=== PATIENT | female | born 2005 ===

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

== ENCOUNTER 2024-02-07 15:17 | Emergency (ER) | payer MEDICAID, SELFPAY ==
[2024-02-07 16:27] VITALS: BP 109/65; PULSE 125; RESP 18; TEMP 37.8; O2SAT 99; BMI 20.8
--- NOTE | 2024-02-07 16:27 | ED.GENADULT ---
HPI - General Adult General Chief complaint: Upper Respiratory Symptoms Stated complaint: fever headache Time Seen by Provider: 02/07/24 17:33 Source: patient Mode of arrival: ambulatory Limitations: no limitations History of Present Illness ED Provider: shasta LUCAS narrative: Patient is a 18-year-old female presenting to the emergency department with complaint of cough, fever, nasal congestion and headache which began today. Patient recently traveled here from [place]. She denies any known sick contacts. She denies any nausea or vomiting and has been able to tolerate food and fluids by mouth. Do not take any ahgi-sax-phrpgla medications prior to arrival. complaint: fever, cough Onset (ago): hour(s) Associated symptoms: cough, fever/chills and headaches Treatments prior to arrival: none Related Data Previous Rx's ?Medication ?Instructions ?Recorded oseltamivir 75 mg capsule 75 mg PO BID 5 days #10 caps 02/07/24 Allergies Allergy/AdvReac Type Severity Reaction Status Date / Time Penicillins Allergy Unknown Verified 02/07/24 16:30 Review of Systems Review of Systems: As per HPI. Yes all other systems are reviewed and are negative Constitutional: Constitutional: Reports as per HPI [facility] Social History Social History Advance Directives: No Advance Directives Information Provided: No Do you have a plan to hurt others: No Plan Physical Exam ED Vital Signs: Vital Signs - 24 hr 02/07/24 16:27 Temperature 100.1 F Pulse Rate 125 H Respiratory Rate 18 Blood Pressure 109/65 Pulse Oximetry 99 Oxygen Delivery Method Room Air BMI result Body Mass Index 20.8 Vital signs have been reviewed and appear to be correct. Blood pressure normal. Heart rate tachycardic. Respiratory rate normal. Temperature elevated. Oxygen saturation normal. Const General: cooperative, healthy appearing and no acute distress Orientation/consciousness: oriented to person, oriented to place, oriented to time and patient oriented x3 Limitations: no limitations HENMT Head: Yes normocephalic and Yes atraumatic Ears: external ears normal General nose exam: Normal external nose present Face and sinus: Yes face symmetric Mouth: oropharynx normal and moist mucous membranes Throat: Yes uvula midline Eyes Pupils: Equal, round and reactive pupils present Neck Neck: Yes normal visual inspection and Yes supple Resp Effort & Inspection: normal respiratory effort and able to speak in complete sentences Auscultation: clear to auscultation bilaterally Cardio Rate: tachycardic Rhythm: regular rhythm Heart sounds: S1 normal heart sound present and S2 normal heart sound present GI Palpation (GI): Soft to palpation and nontender Auscultation: normoactive bowel sounds General: Yes no CVA tenderness Back/Spine/Pelvis Back: no CVA tenderness Skin General skin exam: elasticity normal and turgor normal Neuro General: oriented to person, oriented to place, oriented to time, patient oriented x3, moves all extremities, no focal motor deficits and CN's II-XI intact bilaterally Cranial nerves: Yes Equal, round and reactive pupils present Cognition (Neuro): normal cognition Extrem General: Yes full ROM, Yes no pedal edema and Yes no calf tenderness Psych Mental Status: mental status grossly normal Affect: normal affect Thought process: Normal thought process present Course Course Course Narrative: This is an RME: Additional HPI, ROS, PE not included below will be deferred to primary provider. RME assessment and note performed by: Neha Gonzales PA-C This is a 18-year-old female, with a history of asthma, who presents emergency department with complaints of headaches, congestion, and subjective fevers since today. No sick contacts. Plan: COVID, flu, RSV, strep Medical Decision Making Medical Decision Making MDM Narrative: Patient is a 18-year-old female presenting to the emergency department with complaint of cough, fever, nasal congestion and headache which began today. On exam patient is awake, A+Ox3, tachycardic, temp elevated, afebrile, normal neurological exam without focal deficits, physical exam findings as above. Given reported symptoms and physical exam findings, initial differential includes viral illness, COVID, flu, RSV, strep pharyngitis. Viral swab positive for influenza A. Patient updated on results and all questions answered. Discussed treatment with Tamiflu which patient is requesting. Discussed side effects of nausea and vomiting with patient and she still wishes to go ahead with treatment with Tamiflu as she has history of childhood asthma. Advised patient to wear mask while symptomatic and isolate at home for the next 4 days. Discussed treatment is symptomatic, can use Tylenol or ibuprofen as needed for fever or discomfort, [id number] cough medication. Advised her to ensure adequate rest and adequate fluid intake. Return precautions discussed at bedside. Follow-up with PCP. Patient verbalized understanding of and agreement with plan. Differential Diagnosis Differential Diagnoses: The differential diagnosis associated with the presentation includes As per [facility]. Lab Data [facility] Lab Attestation statement: I reviewed the patient's lab results. As per [facility]. Labs: Lab Results 02/07/24 Range/Units 16:44 Influenza Type A (PCR) POSITIVE A (Negative) Influenza Type B (PCR) NEGATIVE (Negative) RSV RNA Qual (PCR) NEGATIVE (Negative) SARS-CoV-2 RNA (RT-PCR) NEGATIVE (Negative) S. pyogenes GrpA CHENG Negative (Negative) External Record Review External record reviewed: Inpatient record, Office record and Outpatient record Prescription Management I considered prescription management with: Antiviral Discharge Plan Discharge Clinical Impression: Influenza Patient Disposition: Home, Self-Care Instructions: Oseltamivir (By mouth), Influenza (DC), Flu Shot (Vaccine) for Adults (ED) Additional Instructions: You were evaluated in the emergency department today for cough, congestion and fever. Your flu test was positive. You should isolate at home for another 4 days and continue to wear mask or symptomatic after that. You were offered treatment with Tamiflu which you were agreeable to, please take this medication as prescribed. A common side effect of this medication is nausea and vomiting. Your symptoms should resolve over time with rest and fluids. You can take 650 mg Tylenol or 600 mg ibuprofen every 6 hours as needed for fever or pain. Please follow-up with your primary care provider for any ongoing symptoms. Return to the emergency department if you develop worsening pain, fever not controlled with Tylenol and ibuprofen, chest pain, dizziness or lightheadedness, or any other concerning symptoms. Prescriptions: New oseltamivir 75 mg capsule 75 mg PO BID 5 Days Qty: 10 0RF Print Language: Syrian
[2024-02-07 17:32] LABS: IDNOW Serial# 08D9AD1C; Strep A Nucleic Acid Negative (Negative)
[2024-02-07 17:44] LABS: Influenza A PCR POSITIVE (Negative); Influenza B PCR NEGATIVE (Negative); Resp Syncy Virus RNA Qual PCR NEGATIVE (Negative); SARS COV2 PCR INHOUSE NEGATIVE (Negative)
[2024-02-07 18:26] VITALS: BP 99/41; PULSE 124; RESP 16; TEMP 37.9; O2SAT 98
[2024-02-07 18:32] VITALS: O2SAT 98
[2024-02-07 18:35] VITALS: BP 99/41; PULSE 120; RESP 18; TEMP 37.9; O2SAT 98
== END 2024-02-07 18:37 | disposition home or self-care (01) ==
PROVIDERS: Physician Assistant Medical; Emergency Provider Emergency Medicine
DX: J10.1 Influenza due to other identified influenza virus with other respiratory manifestations (principal); R51.9 Headache, unspecified; R50.9 Fever, unspecified; R05.9 Cough, unspecified; Z03.818 Encounter for observation for suspected exposure to other biological agents ruled out
CPT/HCPCS: 0241U; 87651; 99283; 99284

== ENCOUNTER 2024-08-01 12:34 | Outpatient (REF) | payer MEDICAID, SELFPAY ==
[2024-08-01 13:33] LABS: MANUAL DIFF FLAG NO
[2024-08-01 14:01] LABS: Basophils Percent Auto 0.5 % (0-2); Eosinophils Percent Auto 0.5 % (0-4); Hematocrit 39.3 % (37.0-47.0); Hemoglobin 13.1 g/dl (12.0-16.0); Imm Gran Abs Auto 0.02 X10*3/uL (0.00-0.03); Imm Gran Pct Auto 0.3 % (0.0-0.4); Lymphocytes Percent Auto 30.5 % (20-40); Mean Corpuscular HGB Conc 33.3 g/dl (31.0-35.0); Mean Corpuscular Hemoglobin 29.2 pg (27.0-33.0); Mean Corpuscular Volume 87.7 fL (80.0-98.0); Mean Platelet Volume 12.4 fL (9.4-12.3); Monocytes Absolute Auto 0.4 X10*3/uL (0.1-1.2); Neutrophils Percent Auto 62.2 % (45-73); Platelet Count 246 X10*3/uL (160-400); Red Blood Count 4.48 X10*6/uL (4.20-5.50); Red Cell Distribution Width 12.4 % (11.0-16.0); White Blood Count 6.5 X10*3/uL (4.8-10.8)
[2024-08-01 14:12] LABS: INTERNATIONAL NORM RATIO 1.2 (0.9-1.1); Prothrombin Time 13.9 SEC (10.9-12.4)
[2024-08-01 14:39] LABS: Alanine Aminotransferase 15 U/L (0-31); Albumin Level 4.4 g/dL (3.5-5.0); Alkaline Phosphatase 77 U/L (39-117); Anion Gap 11 (12-20); Aspartate Amino Transferase 22 U/L (5-31); Bilirubin Total 0.6 mg/dL (0.0-1.0); Blood Urea Nitrogen 14 mg/dL (9-16); Calcium 9.3 mg/dL (8.4-10.2); Carbon Dioxide 25 mmol/L (22-29); Chloride 108 mmol/L (96-108); Estimated Glomerular Filt Rate > 60; Glucose Random 78 mg/dL (60-115); Potassium 3.5 mmol/L (3.3-5.1); Sodium 140 mmol/L (135-145); Total Protein 8.1 g/dL (6.5-8.0)
[2024-08-01 15:28] LABS: CT PCR NOT DETECTED (Not Detect.); NG PCR NOT DETECTED (Not Detect.)
[2024-08-02 04:56] LABS: HIV AB/AG Nonreactive (Nonreactive); HIV Num 1 0.05 S/CO (0.00-0.99); ~Hepatitis C Antibody Nonreactive (Nonreactive)
[2024-08-09 16:13] LABS: Vitamin C 0.5 mg/dL (0.3-2.7)
[2024-08-11 13:29] LABS: Factor VIII Activity Clotting 83 % normal (50-180); PTT, Activated 31 sec (23-32); Ristocetin Cofactor 53 % normal (42-200)
== END 2024-08-01 12:35 | disposition home or self-care (01) ==
LOC: HO.CHCLDS 12:34
PROVIDERS: Visit Provider Family Medicine
DX: Z13.30 Encounter for screening examination for mental health and behavioral disorders, unspecified (principal); Z87.898 Personal history of other specified conditions
CPT/HCPCS: 36415; 80053; 82180; 85025; 85240; 85245; 85246; 85247; 85610; 85730; 86803; 87389; 87491; 87591